=== PATIENT | female | born 1995 | race American Indian/Alaskan Native ===

== ENCOUNTER 2018-01-29 21:30 | Emergency (ER) | payer OTHER ==
[~2018-01-29] VITALS: Ht 157.5 cm; Wt 77.1 kg
== END 2018-01-30 02:30 | disposition home or self-care (01) ==
LOC: ED 21:30
DX: O20.9 Hemorrhage in early pregnancy, unspecified (principal); Z3A.10 10 weeks gestation of pregnancy; Z88.6 Allergy status to analgesic agent; Z79.899 Other long term (current) drug therapy
CPT/HCPCS: 76801; 80048; 81001; 84702; 85025; 86900; 86901; 99284

== ENCOUNTER 2018-06-01 08:05 | Emergency (ER) | payer OTHER ==
[~2018-06-01] VITALS: Ht 157.5 cm; Wt 77.1 kg
== END 2018-06-01 09:15 | disposition short-term general hospital (02) ==
LOC: ED 08:05
PROC: 0T9B70Z Drainage of Bladder with Drainage Device, Via Natural or Artificial Opening (ICD-10-PCS; principal; 2018-06-01)
DX: O15.02 Eclampsia complicating pregnancy, second trimester (principal); O99.282 Endocrine, nutritional and metabolic diseases complicating pregnancy, second trimester; E16.2 Hypoglycemia, unspecified; V47.9XXA Unspecified car occupant injured in collision with fixed or stationary object in traffic accident, initial encounter; Z3A.27 27 weeks gestation of pregnancy
CPT/HCPCS: 51702; 80053; 81001; 84156; 84550; 85025; 85460; 96365; 96375; 99285; J3475; J7040

== ENCOUNTER 2018-06-01 08:33 | Observation (INO) | payer OTHER | END 2018-06-01 10:35 | disposition short-term general hospital (02) | LOC: FBCO 08:33 → FBC 09:24 | PROVIDERS: ADMIT Obstetrics & Gynecology | DX: O15.02 Eclampsia complicating pregnancy, second trimester (principal); Z3A.27 27 weeks gestation of pregnancy | CPT/HCPCS: 76815; 96372; G0378; J0702; J3475; J7120 ==

== ENCOUNTER 2023-10-26 06:49 | Inpatient (IN) | payer BC, OTHER ==
[~2023-10-26] VITALS: Ht 152.4 cm; Wt 110.7 kg
[2023-10-31] MEDS ORDERED: LACTATED RINGER'S 1,000 ML IV SCH (14:30)
[2023-10-31] MEDS ORDERED: LACTATED RINGER'S 2,000 ML IV PRN (14:30)
[2023-11-01 05:42] LABS: HEMATOCRIT 35.5 % (35.0-50.0); HEMOGLOBIN 11.6 g/dL (12.0-18.0); MCH 27.5 (27-36); MCHC 32.7 g/dl (30-36); MCV 84.1 fl (81-99); RBC 4.22 M/ul (4.3-5.7); RDW 16.2 (10.5-15.0)
[2023-11-01 06:05] LABS: AMPHETAMINES, URINE NEGATIVE (NEGATIVE); BARBITURATES, URINE NEGATIVE (NEGATIVE); BENZODIAZEPINE, URINE NEGATIVE (NEGATIVE); BUPRENORPHINE, URINE NEGATIVE (NEGATIVE); CANNABINOID, URINE NEGATIVE (NEGATIVE); COCAINE, URINE NEGATIVE (NEGATIVE); ECSTASY, URINE NEGATIVE (NEGATIVE); FENTANYL, URINE NEGATIVE (NEGATIVE); METHADONE, URINE NEGATIVE (NEGATIVE); OPIATES, URINE NEGATIVE (NEGATIVE); OXYCODONE, URINE NEGATIVE (NEGATIVE); PHENCYCLIDINE, URINE NEGATIVE (NEGATIVE)
[2023-11-01 06:07] VITALS: BP 131/68
[2023-11-01] MEDS ORDERED: fentaNYL citrate 100 MCG/2 ML VIAL ONE (06:53)
[2023-11-01] MEDS ORDERED: OXYTOCIN 10 UNITS/ML VIAL ONE (06:53)
[2023-11-01] MEDS ORDERED: DEXAMETHASONE SOD PHOS 4 MG/ML VIAL ONE ×2 (06:53→07:47)
[2023-11-01] MEDS ORDERED: PHENYLEPHRINE HCL 10 MG/ML VIAL ONE (06:53)
[2023-11-01] MEDS ORDERED: LIDOCAINE HCL 2% 5 ML SDV ONE (06:53)
[2023-11-01] MEDS ORDERED: ondansetron HCL 4 MG/2 ML VIAL ONE (06:53)
[2023-11-01] MEDS ORDERED: SODIUM CHLORIDE 0.9% 40 ML IV ONE (06:56)
[2023-11-01] MEDS ORDERED: ePHEDrine sulfate 50 MG/ML AMP ONE (06:58)
[2023-11-01 07:00] LABS: ABO O; ANTIBODY SCREEN NEGATIVE; RH POSITIVE
[2023-11-01] MEDS ORDERED: SOD+POT BICARB/CITRIC ACID 2 EA TABLET.EFF PO SCH (07:00)
[2023-11-01] MEDS ORDERED: ADULT LOW DOSE81 MG PO (07:00)
[2023-11-01] MEDS ORDERED: LACTATED RINGER'S 1,000 ML IV SCH ×2 (07:00→08:20)
[2023-11-01] MEDS ORDERED: LACTATED RINGER'S 2,000 ML IV PRN (07:00)
[2023-11-01] MEDS ORDERED: CEFAZOLIN SODIUM 2 GM/20 ML SYR IV SCH (07:00)
[2023-11-01] MEDS ORDERED: LACTATED RINGER'S 1,000 ML IV ONE (07:06)
[2023-11-01] MEDS ORDERED: SODIUM CHLORIDE 0.9% 20 ML IV ONE (07:47)
[2023-11-01] MEDS ORDERED: dexmedeTOMIDine HCl 200 MCG/2 ML VIAL ONE (07:47)
[2023-11-01] MEDS ORDERED: Ropivacaine HCl 0.5% 30 ML VIAL ONE (07:47)
[2023-11-01] MEDS ORDERED: PROMETHAZINE HCL 25 MG TAB PO PRN (08:15)
[2023-11-01] MEDS ORDERED: bisacodyL 10 MG SUPP PR PRN (08:15)
[2023-11-01] MEDS ORDERED: METOCLOPRAMIDE HCL 10 MG/2 ML SDV IV PRN (08:15)
[2023-11-01] MEDS ORDERED: PROMETHAZINE HCL 25 MG SUPP PR PRN (08:15)
[2023-11-01] MEDS ORDERED: OXYCODONE HCL 5 MG TAB PO PRN (08:15)
[2023-11-01] MEDS ORDERED: PROCHLORPERAZINE EDISYLATE 10 MG/2 ML VIAL IV PRN (08:15)
[2023-11-01] MEDS ORDERED: OXYTOCIN/0.9 % SODIUM CHLORIDE 500 ML IV SCH (08:15)
[2023-11-01] MEDS ORDERED: ondansetron HCL 4 MG/2 ML VIAL IV PRN (08:15)
[2023-11-01] MEDS ORDERED: LIDOCAINE 2% VISCOUS 6 ML SYR TOP ONE (08:15)
[2023-11-01] MEDS ORDERED: ACETAMINOPHEN 1,000 MG/100 ML VIAL ONE (08:31)
[2023-11-01 08:49] VITALS: BP 108/61
--- NOTE | 2023-11-01 08:52 | NUR ---
11/01/23 0852 Torie Nguyen 0823 PT ARRIVED IN PACU WIDE AWAKE WITH NO C/O'S. 0824 BABY TO BREAST WITH HELP FROM FBC RN. SPOUSE AT BEDSIDE. 0830 EATING ICE CHIPS WITH NO C/O'S. 0837 REPORT GIVEN TO RN. BED PLUGGED IN. MOM BREAST FEEDING BABY.
[2023-11-01] MEDS ORDERED: HEParin SOD (PORCINE) 5,000 UNIT/0.5 ML SYR SUB-Q SCH (09:00)
[2023-11-01] MEDS ORDERED: SENNOSIDES/DOCUSATE 1 EA TAB PO SCH (09:00)
[2023-11-01] MEDS ORDERED: MORPHINE SULFATE 4 MG/ML VIAL IV PRN (09:45)
[2023-11-01] MEDS ORDERED: IBLOOD GLUCOSE TEST STRIP 1 EA TEST VI PRN (09:45)
[2023-11-01] MEDS ORDERED: diphenhydrAMINE HCL 50 MG/ML VIAL IV PRN (09:45)
[2023-11-01] MEDS ORDERED: fentaNYL citrate 100 MCG/2 ML VIAL IV PRN (09:45)
[2023-11-01] MEDS ORDERED: HYDROmorphone HCL 1 MG/ML SYR IV PRN (09:45)
[2023-11-01] MEDS ORDERED: NALOXONE HCL 0.4 MG SYR IV PRN ×2 (09:45)
[2023-11-01] MEDS ORDERED: SIMETHICONE 125 MG TABLET CHEWABLE PO SCH (11:00)
[2023-11-01] MEDS ORDERED: ACETAMINOPHEN 500 MG TAB PO SCH ×2 (14:00→17:00)
--- NOTE | 2023-11-01 19:58 | OR ---
[facility] [address] [place], [place] [address] Signed DATE OF OPERATION: 11/01/2023 SURGEON: Latonia Morillo MD COPY AND PRINT ASSOCIATE: SG Lema DO PREOPERATIVE DIAGNOSES: Term , polyhydramnios, previous section POSTOPERATIVE DIAGNOSES: Term , polyhydramnios, previous section, delivered. PROCEDURE: Repeat section with low segment transverse uterine incision. ANESTHESIA: Spinal. ESTIMATED BLOOD LOSS: 500 mL. DRAINS: Cottrell catheter. INDICATIONS AND FINDINGS: The patient is a 28-year-old female admitted for repeat section. She was delivered of a little boy via lower segment transverse uterine incision from the ROT position with Apgars of 9 and 9 and a weight of 8 pounds and 11 ounces. The uterus, tubes, ovaries, and placenta appeared normal. DESCRIPTION OF PROCEDURE: The patient was prepped and draped in the supine position. A repeat Pfannenstiel skin incision was made and carried down through the fascia. The incision was extended laterally. The inferior and superior fascial flaps were then created. The peritoneum was entered sharply and the incision extended bluntly. The Ethan retractor was placed and the uterine incision was made at the upper aspect of the peritoneal reflection. The baby was delivered with the above findings and handed off to the pediatric staff in attendance. The placenta was expressed and the uterus explored with a lap tape assuring no remaining fragments. The edges of the incision were identified and the uterus was Electronically Signed By: LATONIA MORILLO MD 11/01/231957 PATIENT NAME: ELIZABETH LANGE OPERATIVE REPORT DATE OF : [birth year] REPORT #: [id number] PHYSICIAN: LATONIA MORILLO MD PCP: RANCHO JACOBSON MD REPORT IS CONFIDENTIAL AND NOT TO BE RELEASED WITHOUT AUTHORIZATION [facility] [address] [place] [id number] Signed closed in 2 layers using 0 Monocryl. The first layer was a running locking stitch and the 2nd was a vertical imbricating stitch. The abdomen was irrigated, inspected and bleeding points along the peritoneal edge were controlled with cautery. The Ethan retractor was removed. The peritoneum was identified and the peritoneum was closed with a running suture of 3-0 Vicryl. The muscles were brought together with interrupted sutures of 0 Vicryl. Bleeding points were controlled with cautery. This area was irrigated, inspected and good hemostasis was noted. The fascia was then closed from each angle to the midline with a running suture of 0 Vicryl. The subcu space was inspected and bleeding points controlled with cautery. The deep space was closed with interrupted sutures of 3-0 Vicryl. The skin was closed with rishi. All sponge and needle counts were correct. She tolerated the procedure well and was taken to the recovery room in good condition. MD MANDY Ram/KOJO /[id number] Copies: ~ Electronically Signed By: LATONIA MORILLO MD 11/01/23 1958 PATIENT NAME: NAZARIOELIZABETH DAWN OPERATIVE REPORT DATE OF : [birth year] REPORT #: [id number] PHYSICIAN: LATONIA MORILLO MD PCP: RANCHO JACOBSON MD REPORT IS CONFIDENTIAL AND NOT TO BE RELEASED WITHOUT AUTHORIZATION
[2023-11-02 05:30] LABS: HEMATOCRIT 30.2 % (35.0-50.0); HEMOGLOBIN 9.8 g/dL (12.0-18.0); MCH 27.4 (27-36); MCHC 32.5 g/dl (30-36); MCV 84.5 fl (81-99); RBC 3.57 M/ul (4.3-5.7); RDW 16.2 (10.5-15.0)
--- NOTE | 2023-11-02 08:25 | PR ---
[facility] [address] [facility] [place], [place] [address] Signed PP Progress Notes Datetime Report Generated by YAIMA: 11/02/2023 08:25 SUBJECTIVE: [id number] Pain: Within Normal Limits Nausea/Vomiting: Denies Flatus: No Vital Signs: [id number] Vital Signs: Reviewed; Within Normal Limits Cardiovascular: Normal Respiratory: Normal Abdomen/Uterus: Abnormal Lochia: Normal Vulva/Perineum: Not Done Breasts: Not Done CVA Tenderness: Not Done Extremities: Normal Incision: Normal Progress: Abnormal Exam Comments: Abdomen with active BS. Fundus firm, NT @ U-1. H/H 9.8/30.2, WBC 14.5, plat 251k IMPRESSION/PLAN/PROCEDURES: [id number] Impression: Normal Progression; Difficulties Other Plans: Increase ambulation, shower Progress Notes: Doing well. Will increase activity. Signing Physician: Latonia Morillo MD Copies: ~ *Electronically Signed* 11/02/23824 LATONIA MORILLO MD PATIENT NAME: ELIZABETH LANGE PROGRESS NOTE DATE OF : [birth year] PHYSICIAN: LATONIA MORILLO MD RPT #: [id number] REPORT IS CONFIDENTIAL AND NOT TO BE RELEASED WITHOUT AUTHORIZATION
--- NOTE | 2023-11-03 06:59 | PR ---
[facility] [address] [place], [place] [address] Signed PP Progress Notes Datetime Report Generated by CPN: 11/03/2023 06:59 SUBJECTIVE: [id number] Pain: Within Normal Limits Nausea/Vomiting: Denies Flatus: Yes Bowel Movement: No Vital Signs: [id number] Vital Signs: Reviewed; Within Normal Limits Cardiovascular: Normal Respiratory: Normal Abdomen/Uterus: Normal Lochia: Normal Vulva/Perineum: Not Done Breasts: Not Done CVA Tenderness: Normal Extremities: Normal Incision: Normal Progress: Normal Exam Comments: Fundus firm U-2 nontender. Incision healing well w/ rishi in place IMPRESSION/PLAN/PROCEDURES: [id number] Impression: Normal Progression Plan: Discharge Other Plans: Increase ambulation, shower Progress Notes: Pt seen and examined. Doing well. Ambulating, voiding, and tolerating full diet. Pain and lochia minimal. well. No fevers/chills/lightheadedness. No concerns. Desires d/c home today. Planning vasectomy for pp contraception. Pt w/ ibuprofen allergy and pain well controlled w/ tylenol and oxycodone. Mild asymptomatic blood loss anemia. Reviewed pp instructions and medications in detail. All questions answered. F/U 2 days on FBC for staple removal. Signing Physician: Blas Lema DO Copies: ~ *Electronically Signed* 11/03/23 0659 BLAS LEMA (SG) DO PATIENT NAME: ELIZABETH LANGE PROGRESS NOTE DATE OF : [birth year] PHYSICIAN: BLAS LEMA (JD) DO RPT #: [id number] REPORT IS CONFIDENTIAL AND NOT TO BE RELEASED WITHOUT AUTHORIZATION
== END 2023-11-03 14:05 | disposition home or self-care (01) | DRG 787 ==
LOC: FBC 11-01 04:58
PROVIDERS: ADMIT Obstetrics & Gynecology; ATTEND Obstetrics & Gynecology
PROC: 10D00Z1 Extraction of Products of Conception, Low, Open Approach (ICD-10-PCS; principal; 2023-11-01 07:30)
DX: O34.211 Maternal care for low transverse scar from previous cesarean delivery (principal); D62 Acute posthemorrhagic anemia; O40.3XX0 Polyhydramnios, third trimester, not applicable or unspecified; Z37.0 Single live birth; O90.81 Anemia of the puerperium; Z3A.38 38 weeks gestation of pregnancy
CPT/HCPCS: 01961; 36415; 76942; 80307; 85027; 86850; 86900; 86901; A9270; J0131; J0690; J1100; J1644; J2001; J2371; J2405; J2590; J2795; J3010; J7121

== ENCOUNTER 2024-09-03 23:15 | Observation (INO) | payer BC, OTHER ==
[~2024-09-03] VITALS: Ht 152.4 cm; Wt 95.0 kg
[~2024-09-03 23:15] MED LIST: ADULT LOW DOSE81 MG PO; SEVOFLURANE 250 ML BTL INH ONE
[2024-09-03 23:41] LABS: BILIRUBIN, URINE NEGATIVE (negative); BLOOD/HGB, URINE NEGATIVE (Negative); KETONE, URINE NEGATIVE (Negative); LEUK ESTERASE, URINE NEGATIVE (negative); NITRITE, URINE NEGATIVE (negative)
[2024-09-03 23:42] LABS: MCHC 33.8 g/dl (30-36); RBC 4.73 M/ul (4.3-5.7)
[2024-09-03 23:45] LABS: BASOPHILS 0.8 % (0-2); EOSINOPHILS 1.5 % (0-6); HEMATOCRIT 43.6 % (35.0-50.0); HEMOGLOBIN 14.7 g/dL (12.0-18.0); MCH 31.1 (27-36); MCV 92.1 fl (81-99); MONOCYTES 5.2 % (0-12); NEUTROPHILS 74.5 % (39-80); PLATELET COUNT 302 K/uL (140-440); RDW 14.1 (10.5-15.0)
[2024-09-03] MEDS ORDERED: SODIUM CHLORIDE 0.9% 1,000 ML IV SCH (23:45)
[2024-09-03] MEDS ORDERED: KETOROLAC TROMETHAMINE 30 MG/ML VIAL ONE (23:56)
[2024-09-03 23:57] LABS: ALBUMIN 3.8 g/dL (3.4-5.0); ALBUMIN/GLOBULIN RATIO 0.93 (1.1-2.4); ANION GAP 14.6 (7-21); BILIRUBIN, TOTAL 0.2 ng/dL (0.2-1.0); BUN/CREATININE RATIO 12.63 (6.0-28.6); CALCIUM 9.2 mg/dL (8.5-10.1); CREATININE, SERUM 0.95 mg/dL (0.55-1.02); POTASSIUM 3.6 mmol/L (3.5-5.1); PROTEIN, TOTAL 7.9 g/dL (6.4-8.2)
[2024-09-04] VITALS (7 sets, daily range): BP systolic 107–131; BP diastolic 62–84
[2024-09-04] MEDS ORDERED: KETOROLAC TROMETHAMINE 30 MG/ML VIAL IV ONE ×2 (00:15→23:45)
[2024-09-04] MEDS ORDERED: FAMOTIDINE 20 MG/ 2 ML VIAL IV ONE (01:00)
[2024-09-04] MEDS ORDERED: ondansetron HCL 4 MG/2 ML VIAL IV ONE (01:00)
[2024-09-04] MEDS ORDERED: HYDROmorphone HCL 1 MG/ML SYR IV PRN ×3 (01:00→11:30)
[2024-09-04] MEDS ORDERED: SODIUM CHLORIDE 0.9% 1,000 ML IV SCH (01:00)
[2024-09-04] MEDS ORDERED: CEFAZOLIN SODIUM 2 GM/20 ML SYR IV ONE (01:00)
--- NOTE | 2024-09-04 02:35 | NUR ---
REPORT RECIEVED FROM [employer] SUPERVISOR. PATIENT TO THE FLOOR BY WHEELCHAIR BY THIS RN. PATIENT TRANSFERRED FROM WHEELCHAIR TO BED INDEPENDENTLY. ASSESSMENT COMPLETE. IV FLUSHES WNL. PATIENT EDUCATED TO ROOM AND CALL LIGHT. PATIENT VERBILIZED UNDERSTANDING. BREAST PUMP IN ROOM FOR PATIENT. NO FURTHER NEEDS AT THIS TIME. CALL LIGHT IN REACH.
[2024-09-04] MEDS ORDERED: LACTATED RINGER'S 1,000 ML IV SCH ×2 (02:45→08:45)
[2024-09-04] MEDS ORDERED: ondansetron HCL 4 MG/2 ML VIAL IV PRN ×3 (02:45→11:30)
--- NOTE | 2024-09-04 02:57 | NUR ---
PT ADMITTED TO ROOM 114 FROM ED. A/O, SELF AMBULATION, RA, PT BREAST FEEDS, PUMP FROM FBC IN ROOM. PT AWARE OF HOW TO USE.
--- NOTE | 2024-09-04 05:52 | NUR ---
PATIENT RESTING IN BED WITH EYES CLOSED. RESPIRATIONS EVEN AND UNLABORED. CALL LIGHT IN REACH.
[2024-09-04] MEDS ORDERED: CEFAZOLIN SODIUM 1 GM/10 ML SYR IV SCH (06:00)
--- NOTE | 2024-09-04 06:23 | NUR ---
SCHEDULED IV ABX ADMINISTERED PER ORDER. NO FURTHER NEEDS. CALL LIGHT IN REACH.
--- NOTE | 2024-09-04 07:06 | NUR ---
REPORT FROM GER ALCALA.
--- NOTE | 2024-09-04 08:00 | NUR ---
MORNING ASSESSMENT IS COMPLETE. PATIENT RATES RUQ PAIN MINIMAL AND DOES NOT WANT MEDICATION. PATIENT DENIES NAUSEA. PULSE OX, SCD'S, I/S ARE OUT IN ANTICIPATION OF ORDERS AND FOR POST OP. NO OTHER NEEDS AT THIS TIME.
--- NOTE | 2024-09-04 08:31 | NUR ---
PATIENT IN BED AT THIS TIME. OBSTETRICAL NURSE DID HOURLY ROUNDS ON PATIENT. CALL LIGHT WITHIN REACH, NO FURTHER NEEDS AT THIS TIME.
[2024-09-04] MEDS ORDERED: KETOROLAC TROMETHAMINE 30 MG/ML VIAL IV PRN (08:45)
[2024-09-04] MEDS ORDERED: MORPHINE SULFATE 10 MG/ML VIAL IV PRN (08:45)
[2024-09-04] MEDS ORDERED: FAMOTIDINE 20 MG/ 2 ML VIAL IV SCH ×2 (09:00)
--- NOTE | 2024-09-04 09:10 | NUR ---
PATIENT IS SALINE LOCKED AND GOING VIA WHEELCHAIR TO CT.
--- NOTE | 2024-09-04 09:43 | NUR ---
PATIENT SIGNED CONSENT, IS USING BREAST PUMP, PLAN TO DO PRE-SURGICAL WIPE DOWN AFTER. PATIENT TO GO TO SURGERY NEAR 1200.
--- NOTE | 2024-09-04 09:51 | NUR ---
UR CLINICAL REVIEW: [facility] @ 0840 ORDER MATCHES REG NO AUTH REQUIRED FOR OBS VISIT PER PROTOCOL DISCHARGE TO HOME POST PROCEDURE 09/05/24
--- NOTE | 2024-09-04 10:08 | NUR ---
PT JUST FINISHED PUMPING AND BACK TO BED. ADMINISTERED SHCEDULED MED
--- NOTE | 2024-09-04 10:41 | NUR ---
PATIENT IN BED AT THIS TIME. MERCHANDISING ASSISTANT CHANGED BED LINENS AND PROVIDED PATIENT WITH FRESH GOWN AND CHG WIPES. CALL LIGHT WITHIN REACH, NO FURTHER NEEDS AT THIS TIME.
[2024-09-04] MEDS ORDERED: iopamidoL 30 ML VIAL ONE (11:01)
[2024-09-04] MEDS ORDERED: SODIUM CHLORIDE 0.9% 40 ML IV ONE (11:02)
--- NOTE | 2024-09-04 11:11 | NUR ---
PATIENT IS READY FOR SURGERY, NO NEEDS AT THIS TIME.
[2024-09-04] MEDS ORDERED: fentaNYL citrate 100 MCG/2 ML VIAL ONE (11:13)
[2024-09-04] MEDS ORDERED: KETAMINE in NS 50 MG/5 ML SYR ONE (11:13)
[2024-09-04] MEDS ORDERED: ondansetron HCL 4 MG/2 ML VIAL ONE (11:14)
[2024-09-04] MEDS ORDERED: propofoL 200 MG/20 ML VIAL ONE (11:14)
[2024-09-04] MEDS ORDERED: ROCURONIUM BROMIDE 50 MG/5 ML SYR ONE (11:14)
[2024-09-04] MEDS ORDERED: MAGNESIUM SULFATE 1 GM/2 ML VIAL ONE (11:14)
[2024-09-04] MEDS ORDERED: LIDOCAINE HCL 2% 5 ML SDV ONE (11:14)
[2024-09-04] MEDS ORDERED: ACETAMINOPHEN 1,000 MG/100 ML VIAL ONE (11:14)
[2024-09-04] MEDS ORDERED: DEXAMETHASONE SOD PHOS 4 MG/ML VIAL ONE (11:14)
--- NOTE | 2024-09-04 11:28 | NUR ---
PATIENT TO SURGERY WITH GER SENA.
[2024-09-04] MEDS ORDERED: NALOXONE HCL 0.4 MG SYR IV PRN (11:30)
[2024-09-04] MEDS ORDERED: IBLOOD GLUCOSE TEST STRIP 1 EA TEST VI PRN (11:30)
[2024-09-04] MEDS ORDERED: fentaNYL citrate 50 MCG/ML SDV IV PRN (11:30)
--- NOTE | 2024-09-04 11:35 | NUR ---
PATIENT OFF FLOOR, IN SURGERY AT THIS TIME.
--- NOTE | 2024-09-04 12:19 | NUR ---
PT NOT AVAILABLE FOR VISIT. PROVIDED PRAYER.
[2024-09-04] MEDS ORDERED: SUGAMMADEX SODIUM 200 MG/2 ML ML ONE (12:50)
--- NOTE | 2024-09-04 13:40 | NUR ---
09/04/24 1340 Melania Maloney 1327 PT TO PACU SLEEPING BUT AROUSEABLE DENIES PAIN AND NAUSEA. PT NEEDS CHIN THRUST TO MAINTAIN OPEN AIRWAY. O2 VIA MASK FOGGING NOTED IN MASK. BREATHS EVEN AND UNLABORED.
[2024-09-04] MEDS ORDERED: CEFAZOLIN SODIUM 2 GM/20 ML SYR IV SCH (14:00)
[2024-09-04] MEDS ORDERED: ACETAMINOPHEN 500 MG TAB PO PRN (14:30)
[2024-09-04] MEDS ORDERED: OXYCODONE/APAP 7.5/325 TAB PO PRN (14:30)
--- NOTE | 2024-09-04 14:42 | NUR ---
PATIENT IS RESTING IN BED, X4 ABD LAP SITES INTACT WITH STERI-STRIPS CDI, EXCEPT FOR UMBILICAL INCISION, WHICH WAS REINFORCED WITH GUAZE. ICE PACKS TO ABDOMEN. PATIENT REPORTS MINIMAL ABD PAIN OF 2/10, IS ON ROOM AIR FOR 96% SATS.
--- NOTE | 2024-09-04 15:22 | NUR ---
SECOND SET OF POST OP VIITALS COMPLETE. PATIENT IS SLEEPING WITH REGULAR RESP, 97% 0N ROOM AIR.
--- NOTE | 2024-09-04 16:45 | NUR ---
PATIENT IS EATING CRACKERS PUDDING. PATIENT UP TO BATHROOM TO VOID 600ML. PATIENT IS SALINE LOCKED, EATING AND DRINKING WELL. PATIENT REPORTS ABD PAIN IS 3/10. GOWN CHANGED. REGULAR DINNER ORDERED.
--- NOTE | 2024-09-04 17:42 | NUR ---
FINAL POST OP VITAL COMPLETE. PATIENT IS TOLERATING REGULAR DIET, PAIN IS MINIMAL 3/10.
[2024-09-04] MEDS ORDERED: OXYCODON-ACETA1 EAC2 PO (18:14)
[2024-09-04] MEDS ORDERED: ACETAMINOPHEN500 MG PO (18:14)
--- NOTE | 2024-09-04 18:17 | OR ---
[facility] [address] [place], [place] [address] Signed DATE OF OPERATION: 09/04/2024 SURGEON: Nima Kohler MD PREOPERATIVE DIAGNOSES: 1. Acute calculus cholecystitis and coincidental right lower lobe of liver hemangioma. 2. Obesity and state 10 weeks. POSTOPERATIVE DIAGNOSIS: Severe acute multiple gallstones, cholecystitis. PROCEDURES: 1. Laparoscopic cholecystectomy with intraoperative cholangiogram. 2. Surgeon-directed fluoroscopy. ANESTHESIA: General endotracheal; Steve Addison BINGO ATTENDANT and local 10 mL of 0.25% Marcaine with epinephrine. INDICATION: This 29-year-old obese dark skinned woman presented to the emergency room late last night and was evaluated by Dr. Crowell with complaints of right upper abdominal pain following her evening meal. Evaluation included a liver enzymes, which showed an elevated alkaline phosphatase and normal lipase. Negative beta HCG and ultrasound showing at least one gallstone. This was not thought to be acute cholecystitis on ultrasonographic findings. She was admitted directly to my service and given IV antibiotics, parenteral pain medication, fluid resuscitation and so on. She had mild right subcostal tenderness at this point, but does feel much better since admission. She is admitted to undergo cholecystectomy preferred by laparoscopic approach. Coincidental note at time of ultrasound was that of a right lobe of liver lesion. This was evaluated once admitted by me with CT scan which confirmed the lesion likely to be consistent with hemangioma. It measured approximately 4.7 cm in size. Notably, the lesion was not identified during operation. FINDINGS: Severely distended gallbladder which was markedly inflamed, hyperemic, was noted consistent with acute cholecystitis. The gallbladder once excised had multiple 1 cm yellow gallstones. Cholangiogram was normal. Electronically Signed By: NIMA KOHLER MD 09/04/24 1817 PATIENT NAME: ELIZABETH LANGE OPERATIVE REPORT DATE OF : [birth year] REPORT #: [id number] PHYSICIAN: NIMA KOHLER MD PCP: RANCHO JACOBSON MD REPORT IS CONFIDENTIAL AND NOT TO BE RELEASED WITHOUT AUTHORIZATION [facility] [address] [place], [place] [address] Signed Of special note, the cystic duct was surprisingly closed association with the common hepatic duct was carefully dissected free, causing no injury to the duct. Cholangiogram was normal. Liver showed fatty infiltration. I did not see the right lobe liver lesion as noted on CT scan and ultrasound. DESCRIPTION OF PROCEDURE: The patient was brought to the operating room, given a general endotracheal anesthetic. Ancef antibiotic was once again dosed in the operating room. Sequential compression device stockings were used. The abdomen was prepared with a chlorhexidine solution and draped sterilely. An infraumbilical incision was made and using an open Carol cannula technique pneumoperitoneum achieved to a level of 14 mmHg of carbon dioxide gas. Intra-abdominal inspection showed no sign of ascites or carcinomatosis. The gallbladder was quite prominent, had a pink red appearance, markedly edema and inflammation and significant distention quite consistent with a severe acute cholecystitis. Three trocars were placed in usual configuration in the subxiphoid, right midclavicular, and right anterior axillary line. Attempts at grasping the gallbladder were unsuccessful. On that basis, it was decompressed with a needle device through the laparoscope and the puncture site grasped allowing for elevation of the gallbladder. The infundibulum was quite markedly inflamed as well. Using blunt electrocautery dissection on the infundibulum itself, the cystic duct could be identified. Extreme care was taken as it appeared that the common hepatic duct was not far from the cystic duct and in parallel position to it. With meticulous care, the cystic duct was dissected free ultimately identifying the cystic duct well in the common hepatic duct distinct from it. Some clips were applied to the cystic arterial branches as necessary in this area. A clip was applied across gallbladder cystic duct junction and a transverse choledochotomy made the cystic duct. Egress of clear yellow bile was noted. Using an Agarwal type cholangiocatheter intraoperative cholangiography was undertaken showing free flow of contrast in the biliary tree with prompt emptying into the duodenum. Retrograde filling to the common hepatic duct was noted as well. I suspected the cystic duct was not too far from it and was not fixed, especially lengthy in its dimensions. The catheter was removed. The cystic duct was triply clipped and divided. The gallbladder was then dissected free in a retrograde fashion. It appeared that a hepatic arterial branch was parallel to the posterior wall of the gallbladder. A small branch to the gallbladder was secured with a clip and distally divided. The gallbladder was then dissected free from the hepatic attachments with meticulous care in the avascular plane. The gallbladder was placed in an endobag and extracted through the infraumbilical port site opened on the back table and found to have multiple gallstones for more than expected on ultrasound. Photographs were taken there as well. Irrigation was undertaken in subhepatic space. There was no sign of bile leak or bleeding. Electronically Signed By: NIMA KOHLER MD 09/04/24 1817 PATIENT NAME: ELIZABETH LANGE OPERATIVE REPORT DATE OF : [birth year] REPORT #: [id number] PHYSICIAN: NIMA KOHLER MD PCP: RANCHO JACOBSON MD REPORT IS CONFIDENTIAL AND NOT TO BE RELEASED WITHOUT AUTHORIZATION [facility] [address] [place] [place], [place] [address] Signed However, the area for which cystic arterial clipping was undertaken was secured with additional Sarah hemostatic powder agent. Excess irrigation fluid was suctioned free and plans made for closure. The trocars were removed and the infraumbilical fascial incision was reapproximated with interrupted 0 Vicryl suture. A 10 mL of 0.25% Marcaine with epinephrine was injected locally in the skin closed with interrupted 3-0 Vicryl. Steri- Strips were applied as was a sterile dressing. The patient tolerated the procedure well. Blood loss was minimal. Complications none. MD ELYSSA Washington/KOJO /[id number] cc: MD Dr. Rancho Abernathy [facility] Copies: JEREMY CROWELL MD ~ Electronically Signed By: NIMA KOHLER MD 09/04/24 1817 PATIENT NAME: ELIZABETH LANGE OPERATIVE REPORT DATE OF : [birth year] REPORT #: [id number] PHYSICIAN: NIMA KOHLER MD PCP: RANCHO JACOBSON MD REPORT IS CONFIDENTIAL AND NOT TO BE RELEASED WITHOUT AUTHORIZATION
--- NOTE | 2024-09-04 18:17 | HP ---
[facility] [address] [facility] [place] [place] [address] Signed ADMISSION DATE: 09/03/2024 REASON FOR ADMISSION: Acute calculous cholecystitis and incidental finding of hepatic mass, right lobe. 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 She has two children, most recently a [id number]. She is not , though she does have a significant other who is currently watching the children. Yesterday following dinner, she had right upper abdominal and epigastric pain. She presented to the emergency room where she was thoroughly evaluated by Dr. Susan Bateman. She was thought suspicious for gallbladder problem and underwent an ultrasound of the gallbladder, which showed a stone within the gallbladder. Incidentally noted was a 4.8 cm heterogeneous mass in the eighth hepatic segment. Her symptoms have improved since admission, though she still has some complaints of right upper abdominal pain. Her symptoms dominantly include right upper abdominal pain and radiation to the subscapular area. Her white count was normal at 11.5. Her liver enzymes were normal. She does have family history of biliary disease in her mother who has had cholecystectomy. The patient has never had surgery in the past other than x2. She has no ongoing chronic medical problems. REVIEW OF SYSTEMS: She denies any shortness of breath or chest pain. She has had some mild right upper abdominal pain much improved since the time of admission. PHYSICAL EXAMINATION: GENERAL: Pleasant [place] woman who looks to be in no severe distress and certainly without sign of toxicity. NECK: Trachea is midline. CHEST: Clear. HEART: Regular without murmur. ABDOMEN: Obese, but soft. There is tenderness to some minimal degree in the right upper quadrant, but no mass. She has no ascites. Electronically Signed By: NIMA KOHLER MD 09/04/24 1817 PATIENT NAME: ELIZABETH LANGE HISTORY AND PHYSICAL DATE OF : [birth year] REPORT #: [id number] PHYSICIAN: NIMA KOHLER MD PCP: RNACHO JACOBSON MD REPORT IS CONFIDENTIAL AND NOT TO BE RELEASED WITHOUT AUTHORIZATION [facility] [address] [place], [place] [address] Signed EXTREMITIES: Show no clubbing, cyanosis, or edema. Her ultrasound study shows single stone so far as I can tell and is somewhat amorphous right posterior lobe liver abnormality. Uncertain if this represents hemangioma or other lesion. LAB STUDIES: Showed a white count 11.5, hematocrit 43.6. Chem profile is normal. Glucose 138, alkaline phosphatase 192, lipase normal at 64. Beta HCG negative. Urinalysis is negative. ASSESSMENT: The patient has acute calculous cholecystitis based on clinical and ultrasonographic criteria, but she does not have a thickened gallbladder, pericholecystic fluid. The liver lesion is of uncertain origin. Given her recent , the possibility of hepatic adenoma or other similar issue should reasonably be excluded at this time. This may represent hemangioma or other benign finding. I will order her a CT scan of the abdomen to assess this lesion, but likely plan for cholecystectomy later in the day today. I did discuss the issues related to cholecystectomy including the risk of bleeding, infection, bile duct injury, need for open procedure and other unforeseen complications. She understands this and wished to proceed. Nima Kohler MD JM/MODL /[id number] cc: [facility] Dr. Bateman Electronically Signed By: NIMA KOHLER MD 09/04/24 1817 PATIENT NAME: ELIZABETH LANGE HISTORY AND PHYSICAL DATE OF : [birth year] REPORT #: [id number] PHYSICIAN: NIMA KOHLER MD PCP: RANCHO JACOBSON MD REPORT IS CONFIDENTIAL AND NOT TO BE RELEASED WITHOUT AUTHORIZATION [facility] [address] [place], [place] [address] Signed Copies: ~ Electronically Signed By: NIMA KOHLER MD 09/04/24 181 PATIENT NAME: ELIZABETH LANGE HISTORY AND PHYSICAL DATE OF : [birth year] REPORT #: [id number] PHYSICIAN: NIMA KOHLER MD PCP: RANCHO JACOBSON MD REPORT IS CONFIDENTIAL AND NOT TO BE RELEASED WITHOUT AUTHORIZATION
--- NOTE | 2024-09-06 11:19 | PATH ---
[facility] [address] [place], [place] [address] Signed SPECIMEN(S): A GALLBLADDER WITH STONES SPECIMEN SOURCE: A. GALLBLADDER WITH STONES CLINICAL HISTORY: Pre: Acute calculus cholecystitis, post: Gallbladder. FINAL PATHOLOGIC DIAGNOSIS: Gallbladder, cholecystectomy: - Chronic calculous cholecystitis - One reactive lymph node BRP MICROSCOPIC EXAMINATION: Histologic sections of all submitted blocks are examined by light microscopy. These findings, together with the gross examination, support the pathologic diagnosis. GROSS DESCRIPTION: The specimen, labeled and designated "Ferea, C, " and designated on the requisition "gallbladder," is received in formalin and consists of Specimen: Previously opened gallbladder. Dimensions: 9.2 x 3.5 x 2.1 cm. Serosa: Pale pink and smooth. Cystic Duct: Inked, unobstructed. Calculi: 4.5 x 3.2 x 0.9 cm aggregate of yellow-green moods, angular calculi. Mucosa: Laurie and granular with areas of zepeda-blair discoloration. Wall thickness: 0.3-0.8 cm. Lymph node: One pink possible pericystic lymph node that is 1.1 cm in greatest dimension. Additional: None. Finance Lead sections are submitted in (A1). FB (under the direct supervision of a pathologist) The Gross Description was prepared using a voice recognition system. The report was reviewed for accuracy; however, sound-alike word errors, addition and/or deletions may occur. If there is any question about this report, please contact Client Services. ADDITIONAL NOTES: Immunohistochemical and/or in situ hybridization studies if performed in this PATIENT NAME: ELIZABETH LANGE PATHOLOGY DATE OF : [birth year] REPORT #: [id number] PHYSICIAN: TARAH BERGERON PCP: RANCHO JACOBSON MD REPORT IS CONFIDENTIAL AND NOT TO BE RELEASED WITHOUT AUTHORIZATION [facility] [address] [place] [id number] Signed case included appropriate positive controls that reacted as expected. This test was developed and its performance characteristics determined by [facility]. It has not been cleared or approved by the U.S. Food and Drug Administration. The FDA has determined that such clearance or approval is not necessary. This test is used for clinical purposes. It should not be regarded as investigational or for research. [facility] is certified under the Clinical Laboratory Improvement Amendments of 1988 (CLIA) as qualified to perform high complexity clinical laboratory testing. PERFORMING LABORATORY: Technical component was performed by [facility], [address] [place] [address] (CLIA# [id number]). Professional interpretation was performed by [facility] [place], [address] [place] [address] (CLIA#: [id number]). Diagnostician: Julio C Islas MD Pathologist Electronically Signed 09/06/2024 Copies: ~ PATIENT NAME: ELIZABETH LANGE PATHOLOGY DATE OF : [birth year] REPORT #: [id number] PHYSICIAN: TARAH BERGERON PCP: RANCHO JACOBSON MD REPORT IS CONFIDENTIAL AND NOT TO BE RELEASED WITHOUT AUTHORIZATION
== END 2024-09-04 18:55 | disposition home or self-care (01) ==
LOC: ED 23:15 → MS 23:17
PROVIDERS: Emergency Medicine; ADMIT Surgery; ATTEND Surgery
PROC: BF12YZZ Fluoroscopy of Gallbladder using Other Contrast (ICD-10-PCS; 2024-09-04)
PROC: 0FT44ZZ Resection of Gallbladder, Percutaneous Endoscopic Approach (ICD-10-PCS; principal; 2024-09-04 12:00)
DX: O99.62 Diseases of the digestive system complicating childbirth (principal); K80.12 Calculus of gallbladder with acute and chronic cholecystitis without obstruction; R16.0 Hepatomegaly, not elsewhere classified; O99.214 Obesity complicating childbirth; E66.9 Obesity, unspecified; Z79.82 Long term (current) use of aspirin; Z3A.00 Weeks of gestation of pregnancy not specified
CPT/HCPCS: 00790; 36415; 74170; 74300; 76705; 80053; 81003; 83690; 84703; 85025; 96374; 96375; 96376; 99285-25; A9270; G0378; J0131; J0690; J1100; J1885; J2003; J2405; J2704; J3010; J3475; J3490; J7030; J7121; Q9967